=== PATIENT | female | born 1980 | race Caucasian/White ===

== ENCOUNTER 2020-09-24 14:06 | Emergency (ER) | payer OTHER ==
[~2020-09-24] VITALS: Ht 152.4 cm; Wt 54.4 kg
[~2020-09-24 14:06] MED LIST: BIOTIN1 MG PO; CLARITIN10 M1 PO; DICY10CA PO; FOLIC + B12 TAB1 TAB PO; PROTONIX40 MG PO
[2020-09-24] MEDS ORDERED: ZOFRAN8 MG PO (19:55)
[2020-09-24] MEDS ORDERED: PANTOPRAZOLE SO40 MG PO (19:55)
== END 2020-09-24 20:07 | disposition home or self-care (01) ==
LOC: ER 14:06
DX: R10.13 Epigastric pain (principal); R11.10 Vomiting, unspecified; R11.0 Nausea